=== PATIENT | male | born 1945 | race Caucasian/White ===

== ENCOUNTER → 2016-07-29 | Outpatient (CLI) | payer MEDICARE, OTHER ==
[~2016-07-29] MED LIST: AMLO-147 PO; ATOR40TA68 PO; BUSP10TA2 PO; FEXO180T61 PO; FLUN25SP NASAL; LOSA50TA2 PO; MELA1TAB3 PO; PRAZ5CAP16 PO; SERT-165 PO; SERT100T PO; UREA 20% TOP
--- NOTE | 2016-07-29 17:08 | RADRPT ---
PROCEDURE: Right knee radiographs. CLINICAL INDICATION: Right knee pain. Postop. TECHNIQUE: Three views. Weight bearing. Frontal, lateral, and patellar view. COMPARISON: 03/04/2016. FINDINGS: There is no fracture or dislocation. There is a joint effusion. 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 There is no lytic or blastic lesion. Vascular calcifications are present consistent with atherosclerosis. IMPRESSION: 1. Joint effusion. 2. Atherosclerosis. 3. Postoperative appearance of the right knee. RPTAT: QQ .Anthony Yi MD, MD Date Time Electronically viewed and signed by .Anthony Yi MD, MD on 07/29/2016 17:08 .R/
--- NOTE | 2016-07-29 18:49 | HKNOTE ---
DATE OF SERVICE: 07/29/2016 The patient comes in for a 6 month checkup on his right knee. He had a right total knee replacement in January 2016, and a left knee replacement one year before. He has absolutely no problems with eith er knee. He is totally delighted with the results of the surgery. He is here for "a checkup." The patient walks 2 miles at a time twice a day. PHYSICAL EXAMINATION: Both knees have an excellent range of motion. Ligaments are stable. No exte rnal sign of infection or inflammation. Patient's blood pressure is 135/60, temperature 97.9. Note that his height is 5 foot 11 inches and he weighs 250 pounds. MANAGEMENT: The patient is given reassurance that he is doing well. Again, we discussed the need f or antibiotics for the rest of his life if he should have any infection or have any dental work. Th ere is no need for him to see me again unless he is having problems with his knees. Dictated By: IZABELLA JIMENEZ/FLO Conf#: [id number] DID#: [id number]
== END | disposition home or self-care (01) ==
LOC: HKI 13:56
DX: Z47.1 Aftercare following joint replacement surgery (principal); Z96.651 Presence of right artificial knee joint
CPT/HCPCS: 73562; G0463